=== PATIENT | female | born 1950 | race Caucasian/White ===

== ENCOUNTER 2018-11-12 15:27 | Emergency (ER) | payer MEDICARE ==
[2018-11-12] MEDS ORDERED: Morphine 4 MG/ML VIAL ONE (16:41)
[2018-11-12] MEDS ORDERED: Dexamethasone 4 mg/ml Vial ONE (16:42)
--- NOTE | 2018-11-12 17:37 | CT ---
Lumbar spine CT without contrast: 11/12/2018 COMPARISON: None HISTORY: Low back pain radiating into bilateral lower extremities, right greater than left TECHNIQUE: Axial CT imaging at 2.5 mm intervals through the lumbar spine with coronal and sagittal re formatted imaging FINDINGS: There is a subcentimeter nonobstructing stone within the left kidney. There are scattered a therosclerotic calcifications of the imaged abdominal aorta and its branches. Evaluation for central canal and/or neural foraminal stenosis is limited on routine CT examination. Lumbar vertebral body height and alignment is within normal limits. There is disc space narrowing with degenerative endplate change and anterior osteophyte formation at T11-12 and T12-L1. There is mild disc space narrowing at L2-3. There is minimal disc bulge at L2-3 and L3-4. Multilevel bilateral lower lumbar spine facet hypertrophy is present, most significant at L4-5 and L5 -S1. Secondary to facet hypertrophy there is at least moderate central canal stenosis at L4-5. Mild central canal stenosis suspected at L2-3 and L3-4. On the basis of facet hypertrophy there is at leas t mild/moderate neural foraminal stenosis, left greater than right, at L3-4, L4-5, and L5-S1. No acute fracture. No worrisome lytic or blastic bone lesion. There is a questionable small left paracentral disc protrusion at T12-L1 Impression: Multilevel degenerative change within the lumbar spine as detailed above. If there are ra dicular symptoms, follow-up nonemergent MRI is recommended.
== END 2018-11-12 18:50 | disposition home or self-care (01) ==
LOC: ERS 15:27
DX: M48.061 Spinal stenosis, lumbar region without neurogenic claudication (principal); E78.5 Hyperlipidemia, unspecified; I10 Essential (primary) hypertension; F32.9 Major depressive disorder, single episode, unspecified; F17.210 Nicotine dependence, cigarettes, uncomplicated; Z79.899 Other long term (current) drug therapy
CPT/HCPCS: 72131; 96374; 96375; J1100; J2270

== ENCOUNTER 2021-12-21 12:47 | Outpatient (CLI) | payer MEDICARE ==
[2021-12-21 13:48] LABS: Hemoglobin 13.4 g/dL (12.0-15.5); Mean Corpuscular HGB CONC 32.2 g/dL (32.0-36.0); Mean Corpuscular Hemoglobin 29.5 pg (27.0-33.0); Mean Corpuscular Volume 91.6 fl (81.6-98.3); Mean Platelet Volume 10.6 fl (7.4-10.4); Platelet Count 247 10x3/uL (150-450); Red Blood Cell (RBC) Count 4.54 10x6/uL (3.90-5.03); White Blood Cell (WBC) Count 8.5 10x3/uL (3.5-10.5)
[2021-12-21 13:59] LABS: Anion Gap 16 mmol/L (10-20); BUN (Urea Nitrogen) 21 mg/dL (9.8-20.1); Calc. Creatinine Clearance 0 mL/min (70-130); Calcium 9.3 mg/dL (7.8-10.44); Carbon Dioxide 22 mmol/L (23-31); Chloride 105 mmol/L (98-107); Estimated GFR 53; Glucose 119 mg/dL (83-110); Potassium 4.7 mmol/L (3.5-5.1); Prothrombin Time 10.9 sec (9.5-12.1); Sodium 138 mmol/L (136-145)
== END 2021-12-21 12:48 | disposition home or self-care (01) ==
LOC: LABBT 12:47
PROVIDERS: ATTEND Urology
DX: Z01.818 Encounter for other preprocedural examination (principal); N20.0 Calculus of kidney; Z20.822 Contact with and (suspected) exposure to COVID-19
CPT/HCPCS: 80048; 85027; 85610; 85730; 87811; 93005; 93010

== ENCOUNTER 2021-12-26 05:56 | Day surgery (SDC) | payer MEDICARE ==
[2021-12-25 15:05] VITALS: BMI 29.6
[2021-12-26] MEDS ORDERED: Fluconazole In NaCl,Iso-Osm 200 MG in Premix Bag 1 BAG IVPB SCH (06:15)
[2021-12-26] MEDS ORDERED: Iopamidol 30 ML ONE (08:11)
[2021-12-26] MEDS ORDERED: Famotidine/PF 20 mg/2ml Vial ONE (08:14)
[2021-12-26] MEDS ORDERED: cefTRIAXone\\ROCEPHIN 2 GM VIAL ONE (08:23)
[2021-12-26] MEDS ORDERED: fentaNYL Citrate/PF 100 MCG/2 ML SYRINGE ONE (08:23)
[2021-12-26] MEDS ORDERED: Sodium Chloride 0.9% 100 ML ONE (08:23)
[2021-12-26] MEDS ORDERED: SUGAMMADEX SODIUM 200 MG/2 ML VIAL ONE (08:28)
[2021-12-26] MEDS ORDERED: Rocuronium Bromide 10 MG/ML (10ML VIAL) ONE (08:33)
[2021-12-26] MEDS ORDERED: ePHEDrine 50 MG/ML VIAL ONE (08:33)
[2021-12-26] MEDS ORDERED: Lidocaine 1% MPF 2 ML VIAL ONE (08:33)
[2021-12-26] MEDS ORDERED: Dexamethasone 20 MG/5 ML VIAL ONE (08:33)
[2021-12-26] MEDS ORDERED: Ondansetron PF 4 MG/2 ML Vial ONE (08:33)
[2021-12-26] MEDS ORDERED: Ketorolac Tromethamine 30 MG/ML VIAL ONE (08:33)
[2021-12-26] MEDS ORDERED: PROPOFOL 200 MG/20 ML VIAL ONE (08:33)
[2021-12-26] MEDS ORDERED: Oxybutynin 5 MG TAB ONE (10:30)
[2021-12-26] MEDS ORDERED: Phenazopyridine HCl 100 MG TAB ONE (10:31)
== END 2021-12-26 12:09 | disposition home or self-care (01) ==
LOC: SDC 05:56
PROVIDERS: ATTEND Urology
PROC: 0TC78ZZ Extirpation of Matter from Left Ureter, Via Natural or Artificial Opening Endoscopic (ICD-10-PCS; principal; 2021-12-26)
PROC: 0T778DZ Dilation of Left Ureter with Intraluminal Device, Via Natural or Artificial Opening Endoscopic (ICD-10-PCS; 2021-12-26)
DX: N20.1 Calculus of ureter (principal); N30.00 Acute cystitis without hematuria; B96.20 Unspecified Escherichia coli [E. coli] as the cause of diseases classified elsewhere; I10 Essential (primary) hypertension; E78.00 Pure hypercholesterolemia, unspecified; F17.210 Nicotine dependence, cigarettes, uncomplicated; G89.4 Chronic pain syndrome; M48.062 Spinal stenosis, lumbar region with neurogenic claudication; B37.3 Candidiasis of vulva and vagina; Z79.2 Long term (current) use of antibiotics; Z79.84 Long term (current) use of oral hypoglycemic drugs; Z79.899 Other long term (current) drug therapy
CPT/HCPCS: 74018; 74420; 82365; 88300; C1769; C2617; J0696; J1100; J1450; J1885; J2405; J2704; J3490; Q9967; S0028

== ENCOUNTER 2022-01-02 11:59 | Outpatient (CLI) | payer MEDICARE | END 2022-01-02 12:00 | disposition home or self-care (01) | LOC: RAD 11:59 | PROVIDERS: ATTEND Urology | DX: N20.0 Calculus of kidney (principal) | CPT/HCPCS: 74018 ==